=== PATIENT | male | born 1950 | race Caucasian/White ===

== ENCOUNTER 2021-03-19 13:20 | Emergency (ER) | payer MEDICARE ==
[~2021-03-19] VITALS: Ht 167.6 cm; Wt 70.3 kg
[~2021-03-19 13:20] MED LIST: CIPRO500 MG PO; OXYBUTYNIN5 MG PO; PERCOCET 325 MG1 TA3 PO
== END 2021-03-19 14:29 | disposition home or self-care (01) ==
LOC: ED 13:20
DX: S61.211A Laceration without foreign body of left index finger without damage to nail, initial encounter (principal); Z91.030 Bee allergy status; Z79.899 Other long term (current) drug therapy; X58.XXXA Exposure to other specified factors, initial encounter; Y93.89 Activity, other specified; Y92.89 Other specified places as the place of occurrence of the external cause; Y99.8 Other external cause status